=== PATIENT | male | born 1955 | race Caucasian/White ===

== ENCOUNTER 2020-11-24 14:16 | Outpatient (CLI) | payer BC, SELFPAY ==
--- NOTE | ~2020-11-24 | US_ITS ---
EXAMINATION: US aorta DATE: 11/24/2020 14:58 INDICATION: Palpably enlarged abdominal aorta TECHNIQUE: Grayscale, color Doppler, and pulsed Doppler images of the aorta and common iliac arteries were obtained. COMPARISON: None. FINDINGS: Maximum vascular dimensions are as follows: Proximal aorta: 2.8 cm Mid aorta: 2.1 cm Distal aorta: 1.6 cm Right common iliac artery: 1.2 cm Left common iliac artery: 1.2 cm There is no evidence of abdominal aortic aneurysm. IMPRESSION: 1. No sonographic evidence of abdominal aortic aneurysm. Reviewed, dictated and finalized at location B.
== END 2020-11-24 14:17 | disposition home or self-care (01) ==
DX: I77.89 Other specified disorders of arteries and arterioles (principal)
CPT/HCPCS: 76775

== ENCOUNTER 2023-12-27 12:38 | Emergency (ER) | payer MEDICARE, SELFPAY ==
--- NOTE | 2023-12-27 12:40 | ED.EAR ---
HPI - Ear Problem General Chief complaint: Ear Stated complaint: Lt Ear Irritation Time Seen by Provider: 12/27/23 13:11 Source: patient and RN notes reviewed Mode of arrival: ambulatory Limitations: no limitations History of Present Illness HPI Narrative: 68-year-old male presents to the [facility] with his and daughter with complaints of his left ear bleeding. Started about 1 hour prior to arrival Dry blood noted to the posterior ear canal Patient does report using Q-tips Related Data Home Medications Medication Instructions Recorded Confirmed aspirin 81 mg tablet 81 mg PO DAILY 12/27/23 12/27/23 atorvastatin 40 mg tablet 40 mg PO DAILY 12/27/23 12/27/23 carbidopa 25 mg-levodopa 100 mg 1 tablet PO DAILY 12/27/23 12/27/23 tablet hydrochlorothiazide 12.5 mg capsule 12.5 mg PO DAILY 12/27/23 12/27/23 lisinopril 40 mg tablet 40 mg PO DAILY 12/27/23 12/27/23 metoprolol succinate 25 mg 25 mg PO DAILY 12/27/23 12/27/23 tablet,extended release 24 hr Allergies Allergy/AdvReac Type Severity Reaction Status Date / Time No Known Allergies Allergy Verified 12/27/23 12:52 Review of Systems Review of Systems: All systems reviewed & are unremarkable except as noted in HPI and below Constitutional: Constitutional: Reports no additional constitutional complaints Eyes: Eyes: Reports no additional eye complaints ENT: Reports as per HPI Cardiovascular: Cardiovascular: Reports no additional cardiovascular complaints, Denies chest pain and Denies dyspnea Respiratory: Respiratory: Reports no additional respiratory complaints, Denies chest congestion, Denies cough and Denies dyspnea Gastrointestinal: Gastrointestinal: Reports no additional gastrointestinal complaints, Denies abdominal pain, Denies nausea and Denies vomiting Musculoskeletal: Musculoskeletal: Reports no additional musculoskeletal complaints Integumentary/Breasts: Skin/Breast: Reports system reviewed and no additional complaints, except as docu Neurologic: Reports system reviewed and no additional complaints, except as documented Psychiatric: Psychiatric: Reports no additional psychiatric complaints Allergic/Immunologic: Allergic/Immunologic: Reports no additional allergic/immunologic complaints PMFSH Past Medical History Medical History History of high blood pressure Parkinsons Comments At the time of my signature, I reviewed and agree with the nursing past medical, surgical, social, and family history. There is no relevant family history pertinent to the patient complaint. Exam Const: General: cooperative, healthy appearing, comfortable, no acute distress, well developed, alert and well nourished Nutritional Appearance: well nourished Orientation/consciousness: patient oriented x3 Limitations: no limitations HENMT: Head: normal to inspection Ears: hearing grossly normal bilaterally, external ears normal, TM's normal bilaterally, mastoids normal, no periauricular adenopathy and Abnormal EAC present other (Left posterior ear canal, dry blood noted, TM intact.) Face/Nose/Sinus: Normal external nose present, Normal nares present, Normal nasal mucous membranes and turbinates present, normal facial exam and face symmetric Face and sinus: normal facial exam and face symmetric Eyes: General: appearance normal, both eyes and all related structures Alignment and Position: alignment normal Periorbital: periorbital findings normal Pupils: Equal, round and reactive pupils present EOM: EOMs intact bilaterally Neck: Neck: normal visual inspection, full ROM, no lymphadenopathy and no meningeal signs Chest: Chest palpation & inspection: normal inspection of the chest Resp: Effort & Inspection: normal respiratory effort and able to speak in complete sentences Cardio: Rate: regular rate Rhythm: regular rhythm Skin: General skin exam: normal color and no rashes or lesions noted Lesions: no lesions R
[2023-12-27 12:52] VITALS: BP 112/77; PULSE 71; RESP 16; TEMP 36.3; O2SAT 97
== END 2023-12-27 13:30 | disposition home or self-care (01) ==
PROVIDERS: Emergency Provider Nurse Practitioner
DX: S00.412A Abrasion of left ear, initial encounter (principal); X58.XXXA Exposure to other specified factors, initial encounter; I10 Essential (primary) hypertension; G20.A1 Parkinson's disease without dyskinesia, without mention of fluctuations; Z79.82 Long term (current) use of aspirin
CPT/HCPCS: 99211; G0463